=== PATIENT | female | born 1960 | race African-American/Black ===

== ENCOUNTER 2017-02-17 07:58 | Emergency (ER) | payer BC ==
[~2017-02-17] VITALS: Ht 167.6 cm; Wt 72.6 kg
[2017-02-17] MEDS ORDERED: BENADRYL25 M3 PO (08:11)
--- NOTE | 2017-02-17 08:19 | Emergency Room Report ---
History of Present Illness General Chief Complaint: Skin Rash/Abscess Source: Patient Present Illness HPI Patient is a 56-year-old female presented after increased skin rash. Patient generalized itchy rash which she reportedly began after ingesting some crab. 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 Patient had noticed increased itchiness. She denied any difficulty breathing. She reported having taken one pill of Benadryl last night. This is somewhat improved. Patient reported having a generalized itchiness. This was intermittent in nature and variable in location Allergies: Coded Allergies: No Known Allergies (Unverified , 02/17/17) Patient History Past Medical History: see triage record Last Menstrual Period: Post Reviewed Nursing Documentation: PMH: Agreed, PSxH: Agreed Nursing Documentation-PMH Past Medical History: No Stated History Review of Systems All Other Systems: negative except mentioned in HPI Physical Exam Vital Signs Date Time Temp Pulse Resp B/P (MAP) Pulse Ox O2 Delivery O2 Flow Rate FiO2 02/17/17 08:07 98.8 101 18 129/84 98 Room Air General Appearance: well appearing, no apparent distress, alert, GCS 15, non- toxic Head: normocephalic, atraumatic ENT: hearing grossly normal, normal voice Neck: full range of motion, supple Respiratory: no respiratory distress, speaking full sentences Gastrointestinal: normal inspection Musculoskeletal: normal inspection, no calf tenderness Neurologic: normal inspection, alert, oriented x3, normal gait Psychiatric: mood/affect normal Skin: other - generalized urticarial rash Medical Decision Making Diagnostic Impression: Primary Impression: Allergic reaction to food Additional Impression: Urticaria ER Course Patient presented for skin rash. Differential diagnosis included was not limited to Rico-Sonny syndrome, urticaria, erythema multiforme, contact dermatitis. Patient's benign exam and does not appear to require any further imaging or laboratory testing at this time. The patient shows no signs of airway compromise. The patient was given oral steroids as well as histamine blockers. The patient was given prescription for prednisone as well as Benadryl . The patient is advised to follow up with primary care doctor in 1- 2 days. Patient is advised to return if any worsening condition or if any changes in status that are concerning. This report is dictated with [employer] airline transport pilot software which may occasionally lead to discrepancies related to use of this software. Last Vital Signs Date Time Temp Pulse Resp B/P (MAP) Pulse Ox O2 Delivery O2 Flow Rate FiO2 02/17/17 08:07 98.8 101 18 129/84 98 Room Air Status: improved Disposition: HOME, SELF-CARE Condition: Stable Scripts Diphenhydramine Hcl* (BENADRYL*) 25 Mg Capsule 25 MG ORAL Q6H Y for Itching, #30 CAP Prov: Jace Zhou 02/17/17 Prednisone* (PREDNISONE*) 20 Mg Tablet 60 MG ORAL DAILY, #12 TAB Prov: Jace Zhou 02/17/17 Jace Zhou Feb 17, 2017 08:19
[2017-02-17] MEDS ORDERED: BENADRYL25 MG ORAL (08:20)
[2017-02-17] MEDS ORDERED: PREDNISONE20 MG ORAL (08:20)
[2017-02-17 09:05] VITALS: BP 129/84
[2017-02-17 09:08] VITALS: BP 129/84
== END 2017-02-17 09:09 | disposition home or self-care (01) ==
LOC: EMR 08:20
DX: L50.9 Urticaria, unspecified (principal)
CPT/HCPCS: 99283; J7512